=== PATIENT | male | born 1975 | race Caucasian/White ===

== ENCOUNTER 2016-08-29 09:40 | Emergency (ER) | payer MEDICARE, MEDICAID ==
--- NOTE | 2016-08-29 09:56 | EDM.PDOC ---
ED HPI Trauma - General Chief Complaint: Lower Extremity Injury/Pain Stated Complaint: dejan ptGriceldadoes not feel well. in by amb Time Seen by Provider: 08/29/16 09:45 Source: Reports: Patient History Limitations: Reports: No limitations - History of Present Illness INITIAL COMMENTS - FREE TEXT/NARRATIVE: This 41 yo male patient was brought to the ED by [facility] due left hip pain. The patient reports his pain has gotten worse over the weekend. The patient reports he has been seen in [place] for his hip pain. The patient states his hip is out of place, but no doctor will work on his hip because of an infection. The patient is a dialysis patient and scheduled for dialysis at 1130 today. The patient reports he is currently on Fentanyl and Oxycodone for his pain, but the medications are not helping. The patient reports he talked to a Demetra with infectious disease at [facility] in [place] and was told to come to our ED to possibly be transferred to [place]. The patient reports he has not take his medications in the past day or so due to immobility. Symptom Onset Date: 08/27/16 Occurred When: other Occurred Where: other Method of Injury: unknown Severity: severe Pain/Injury Location: Reports: lower extremity, left Consciousness: Reports: no loss of consciousness Associated Symptoms: Reports: no other symptoms Allergies/ADRs: Allergies cefazolin Allergy (Verified 08/29/16 09:51) Rash lisinopril Allergy (Verified 08/29/16 09:51) Cough metronidazole Allergy (Verified 08/29/16 09:51) Rash sevelamer carbonate [From Renvela] Allergy (Verified 08/29/16 09:51) Nausea Home Medications: Ambulatory Orders Albuterol [Ventolin HFA] 2 puff INH Q4H PRN 09/14/13 [Confirmed 08/29/16] Calcium Acetate [Phoslo] 3 cap PO TIDM 09/14/13 [Confirmed 08/29/16] Fluticasone Propionate [Flovent HFA 220 MCG] 2 puff INH BID 09/14/13 [Confirmed 08/29/16] Fluticasone/Salmeterol [Advair 250-50 Diskus] 2 puff INH BID PRN 09/14/13 [ Confirmed 08/29/16] Labetalol [Normodyne] 800 mg PO TID 09/14/13 [Confirmed 08/29/16] Loperamide [Imodium] 2 mg PO Q4H PRN 09/14/13 [Confirmed 08/29/16] Sodium Polystyrene Sulfonate 15 gm PO DAILY 09/14/13 [Confirmed 08/29/16] Warfarin Sodium [Jantoven] 5 mg PO ASDIRECTED 09/14/13 [Confirmed 08/29/16] Warfarin [Coumadin] 10 mg PO ASDIRECTED 09/14/13 [Confirmed 08/29/16] amLODIPine [Norvasc] 10 mg PO BEDTIME 09/14/13 [Confirmed 08/29/16] cloNIDine [Catapres] 0.3 mg PO TID 09/14/13 [Confirmed 08/29/16] oxyCODONE HCl/Acetaminophen [oxyCODONE-Acetaminophen 5-325] 1 tab PO TID PRN [Confirmed 08/29/16] Past Medical History HEENT History: Reports: Impaired vision Cardiovascular History: Reports: CAD, Heart murmur, Heart valve replacement, Hypertension, SOB on exertion Respiratory History: Reports: COPD Gastrointestinal History: Reports: Chronic diarrhea, GI bleed Genitourinary History: Reports: Chronic renal insuffiency, Dialysis, Renal disease Musculoskeletal History: Reports: Osteoarthritis Neurological History: Reports: Neuropathy, peripheral Psychiatric History: Reports: Aggressive/hostile behaviors, Antisocial behaviors , Anxiety, Emotional problems Endocrine/Metabolic History: Reports: Diabetes, type II Hematologic History: Reports: Anemia Immunologic History: Reports: None Oncologic (Cancer) History: Reports: None Dermatologic History: Reports: None - Infectious Disease History Infectious Disease History: Reports: None - Past Surgical History Head Surgeries/Procedures: Reports: None Cardiovascular Surgical History: Reports: Valve replacement, Other (see below) Other Cardiovascular Surgeries/Procedures: aortic valve replacement X2 GI Surgical History: Reports: None Social & Family History - Family History Family Medical History: Noncontributory - Tobacco Use Smoking Status *Q: Current Every Day Smoker Years of Tobacco use: 24 Packs/Tins Daily: 1 Used Tobacco, but Quit: Yes Month Tobacco Last Used: June Second Hand Smoke Exposure: No - Caffeine Use Caffeine Use: Reports: Soda - Alcohol Use Days Per Week of Alcohol Use: 0 - Recreational Drug Use Recreational Drug Use: No Drug Use in Last 12 Months: Yes Recreational Drug Type: Reports: Marijuana/Hashish Recreational Drug Use Frequency: Binges - Living Situation & Occupation Living situation: Reports: with family Occupation: disabled Review of Systems - Review of Systems Review Of Systems: ROS reveals no pertinent complaints other than HPI. Trauma Exam - Physical Exam Exam: See Below Exam Limited By: No limitations General Appearance: Reports: alert, WD/WN, moderate distress Head: Reports: atraumatic, normocephalic Eyes: bilateral eye: EOMI, normal inspection Ears: Reports: normal external exam, normal canal, hearing grossly normal, normal TMs Nose: Reports: normal inspection, normal mucousa, no blood Throat/Mouth: Reports: Normal inspection, Normal lips, Normal teeth, Normal gums , Normal oropharynx, Normal voice, No airway compromise Neck: Reports: non-tender, full range of motion, normal alignment, normal inspection Respiratory Exam: Reports: no respiratory distress, lungs clear, normal breath sounds Cardiovascular: Reports: normal peripheral pulses, regular rate, rhythm, no edema, no gallop, no JVD, no murmur, no rub GI/Abdominal: Reports: normal bowel sounds, soft, non tender, no organomegaly, no distention, no abnormal bruit, no mass (Male) Exam: Deferred Rectal (Males) Exam: Deferred Back: Reports: full range of motion, normal inspection, non-tender Extremities: Reports: pain with movement (left hip), tenderness (left hip) Neurologic: Reports: supervisor dehydrogenation II-XII nml as tested, alert, normal mood/affect, oriented x 3 Skin: Reports: Other (The patient has numerous excoriations on his face and upper estremities. ) Course - Vital Signs Last Recorded V/S: Last Vital Signs Temp 36.9 C 08/29/16 09:42 Pulse 79 08/29/16 09:54 Resp 16 08/29/16 09:54 BP 174/103 H 08/29/16 09:54 Pulse Ox 98 08/29/16 09:54 - Orders/Labs/Meds Labs: Laboratory Tests 08/29/16 08/29/16 08/29/16 Range/Units 10:05 10:05 10:05 WBC 7.5 (5.0-10.0) 10^3/uL RBC 3.12 L (4.6-6.2) 10^6/uL Hgb 9.8 L (14.0-18.0) g/dL Hct 30.1 L (40.0-54.0) % MCV 96.5 (80-100) fL MCH 31.4 (27.0-34.0) pg MCHC 32.6 L (33.0-35.0) g/dL Plt Count 272 (150-450) 10^3/uL Neut % (Auto) 80.7 H (42.2-75.2) % Lymph % (Auto) 6.9 L (20.5-50.1) % Hemphill % (Auto) 6.8 (2-8) % Eos % (Auto) 4.5 H (1.0-3.0) % Baso % (Auto) 1.1 H (0.0-1.0) % PT 12.5 H (9.0-12.0) SEC INR 1.2 (0.9-1.2) Sodium 133 L (135-145) mmol/L Potassium 4.0 (3.6-5.0) mmol/L Chloride 100 L (101-111) mmol/L Carbon Dioxide 20.0 L (21.0-31.0) mmol/L Anion Gap 17.0 BUN 56 H (7-18) mg/dL Creatinine 7.0 H (0.6-1.3) mg/dL Est Cr Clr Drug Dosing 14.49 mL/min Estimated GFR (MDRD) 9 BUN/Creatinine Ratio 8.00 Glucose 99 (74-105) mg/dL Calcium 7.7 L (8.4-10.2) mg/dl Magnesium 1.6 L (1.8-2.5) mg/dL Total Bilirubin 2.6 H (0.2-1.0) mg/dL AST 12 (10-42) IU/L ALT 10 (10-60) IU/L Alkaline Phosphatase 69 (42-121) IU/L Total Protein 7.3 (6.7-8.2) g/dl Albumin 2.1 L (3.2-5.5) g/dl Globulin 5.2 Albumin/Globulin Ratio 0.40 Ethyl Alcohol 5 mg/dL Departure - Departure Time of Disposition: 11:07 Disposition: DC/Tfer to [facility] 02 Condition: fair Clinical Impression: Left hip pain, End stage renal failure on dialysis Forms: Interfacility Transfer EMTALA Care Plan Goals: Discussed the examination, lab and CT results with Dr. Ludwig ([facility]) . Dr. uLdwig accepted the patient for continued evaluation and management. The patient will be transported by [facility].
[2016-08-29] MEDS ORDERED: Morphine 2 MG/ML Syringe IVPUSH ONE (11:40)
[2016-08-29 12:03] VITALS: BP 180/99
== END 2016-08-29 11:58 ==
LOC: DL.ED 09:40
DX: M25.552 Pain in left hip (principal); I12.0 Hypertensive chronic kidney disease with stage 5 chronic kidney disease or end stage renal disease; E11.22 Type 2 diabetes mellitus with diabetic chronic kidney disease; N18.6 End stage renal disease; Z99.2 Dependence on renal dialysis; K80.20 Calculus of gallbladder without cholecystitis without obstruction; I25.10 Atherosclerotic heart disease of native coronary artery without angina pectoris; J44.9 Chronic obstructive pulmonary disease, unspecified; Z95.2 Presence of prosthetic heart valve; Z79.01 Long term (current) use of anticoagulants; M19.90 Unspecified osteoarthritis, unspecified site; D64.9 Anemia, unspecified; Z79.899 Other long term (current) drug therapy; F17.210 Nicotine dependence, cigarettes, uncomplicated; F12.980 Cannabis use, unspecified with anxiety disorder; Z96.643 Presence of artificial hip joint, bilateral
CPT/HCPCS: 36415; 72192; 80053; 83735; 85025; 85610; 96374; 99285; G0480; J2270; 99284

== ENCOUNTER 2016-09-22 14:55 | Emergency (ER) | payer MEDICARE, MEDICAID ==
--- NOTE | 2016-09-22 15:34 | EDM.PDOC ---
ED HPI GENERAL MEDICAL PROBLEM - General Chief Complaint: General Stated Complaint: Medical screening Time Seen by Provider: 09/22/16 15:15 Source of Information: Reports: Patient, Old records, RN, RN notes reviewed History Limitations: Reports: No limitations - History of Present Illness INITIAL COMMENTS - FREE TEXT/NARRATIVE: Arrivesfrom home by POV stating "some chick from [facility] called and told him to go the ER for a blood draw". Patient states he was not to go to [facility] for the lab draw because "they" told him the clinic was not qualified. Patient had no lab order (s) and he didn't know what labs he needed. The home health nurse was contacted and she states she wanted the patient to have a "general evaluation" because he missed dialysis twice and she thought he had slurred speech. Patient denies slurred speech, headache, visual or any neuro symptoms, chest pain, SOB or ay other acute complaints. Duration: Chronic Left Leg Pain Score (Numeric/FACES): 10 - Related Data Allergies Allergy/AdvReac Type Severity Reaction Status Date / Time cefazolin Allergy Rash Verified 09/22/16 15:41 lisinopril Allergy Cough Verified 09/22/16 15:41 metronidazole Allergy Rash Verified 09/22/16 15:41 sevelamer carbonate Allergy Nausea Verified 09/22/16 15:41 [From [facility] [place]] Home Meds: Home Meds Albuterol [Ventolin HFA] 2 puff INH Q4H PRN 09/14/13 [History] Calcium Acetate [Phoslo] 3 cap PO TIDM 09/14/13 [History] Fluticasone Propionate [Flovent HFA 220 MCG] 2 puff INH BID 09/14/13 [History] Fluticasone/Salmeterol [Advair 250-50 Diskus] 2 puff INH BID PRN 09/14/13 [ History] Labetalol [Normodyne] 800 mg PO TID 09/14/13 [History] Loperamide [Imodium] 2 mg PO Q4H PRN 09/14/13 [History] Sodium Polystyrene Sulfonate 15 gm PO DAILY 09/14/13 [History] Warfarin Sodium [Jantoven] 5 mg PO ASDIRECTED 09/14/13 [History] Warfarin [Coumadin] 10 mg PO ASDIRECTED 09/14/13 [History] amLODIPine [Norvasc] 10 mg PO BEDTIME 09/14/13 [History] cloNIDine [Catapres] 0.3 mg PO TID 09/14/13 [History] oxyCODONE HCl/Acetaminophen [oxyCODONE-Acetaminophen 5-325] 1 tab PO TID PRN [History] Past Medical History HEENT History: Reports: Impaired vision Cardiovascular History: Reports: CAD, Heart murmur, Heart valve replacement, Hypertension, SOB on exertion Respiratory History: Reports: COPD Gastrointestinal History: Reports: Chronic diarrhea, GI bleed Genitourinary History: Reports: Chronic renal insuffiency, Dialysis, Renal disease Musculoskeletal History: Reports: Osteoarthritis Neurological History: Reports: Neuropathy, peripheral Psychiatric History: Reports: Aggressive/hostile behaviors, Antisocial behaviors , Anxiety, Emotional problems Endocrine/Metabolic History: Reports: Diabetes, type II Hematologic History: Reports: Anemia Immunologic History: Reports: None Oncologic (Cancer) History: Reports: None Dermatologic History: Reports: None - Infectious Disease History Infectious Disease History: Reports: None - Past Surgical History Head Surgeries/Procedures: Reports: None Cardiovascular Surgical History: Reports: Valve replacement, Other (see below) Other Cardiovascular Surgeries/Procedures: aortic valve replacement X2 GI Surgical History: Reports: None Social & Family History - Family History Family Medical History: Noncontributory - Tobacco Use Smoking Status *Q: Current Every Day Smoker Years of Tobacco use: 24 Packs/Tins Daily: 1 Used Tobacco, but Quit: Yes Month Tobacco Last Used: June Second Hand Smoke Exposure: No - Caffeine Use Caffeine Use: Reports: Soda - Alcohol Use Days Per Week of Alcohol Use: 0 - Recreational Drug Use Recreational Drug Use: No Drug Use in Last 12 Months: Yes Recreational Drug Type: Reports: Marijuana/Hashish Recreational Drug Use Frequency: Binges - Living Situation & Occupation Living situation: Reports: with family Occupation: disabled ED ROS GENERAL - Review of Systems Review Of Systems: ROS reveals no pertinent complaints other than HPI. ED EXAM, GENERAL - Physical Exam Exam: See Below Exam Limited By: No limitations General Appearance: other (chronically ill appearing. ) Eye Exam: bilateral eye: normal inspection Ears: normal external exam, normal canal, hearing grossly normal, normal TMs Nose: normal inspection, normal mucosa, no blood Throat/Mouth: Other (No teeth.) Neck: normal inspection, supple, non-tender, full range of motion Respiratory/Chest: other (Decreased sounds in bilateral bases, mild scattered wheezes throughout bilateral lung huizar. ) Cardiovascular: regular rate, rhythm, systolic murmur (2/6 ) GI/Abdominal: normal bowel sounds, soft, non tender, no organomegaly, no distention, no abnormal bruit, no mass Back Exam: normal inspection, full range of motion, NT Extremities: other (stable chronic hip pain left greater than right. 2+ pitting edema to knees bilateral, stable and chronic per patient.) Neurological: alert, oriented, CN II-XII intact, normal cognition, normal gait, normal reflexes, no motor/sensory deficits Psychiatric: normal affect, normal mood Skin Exam: Warm, Dry, Intact, Normal color, No rash Course - Vital Signs Last Recorded V/S: Last Vital Signs Temp 36.2 C 09/22/16 15:31 Pulse 82 09/22/16 15:31 Resp 18 09/22/16 15:31 BP 114/69 09/22/16 15:31 Pulse Ox 95 09/22/16 15:31 - Orders/Labs/Meds Orders: Active Orders 24 hr Category Date Time Status Peripheral IV Care [RC] . DIRECTED Care 09/22/16 16:47 Active RT Aerosol Therapy [RC] ASDIRECTED Care 09/22/16 16:38 Inactive Sodium Chloride 0.9% [Saline Flush] Med 09/22/16 16:47 Active 10 ml FLUSH ASDIRECTED PRN Peripheral IV Insertion Adult [OM.PC] Stat Oth 09/22/16 16:47 Ordered Medication Orders Sodium Chloride (Saline Flush) 10 ml FLUSH ASDIRECTED PRN PRN Reason: Keep Vein Open Last Admin: 09/22/16 17:07 Dose: 10 ml Labs: Laboratory Tests 09/22/16 09/22/16 09/22/16 Range/Units 15:50 15:50 15:50 WBC 10.3 H (5.0-10.0) 10^3/uL RBC 3.01 L (4.6-6.2) 10^6/uL Hgb 9.4 L (14.0-18.0) g/dL Hct 29.0 L (40.0-54.0) % MCV 96.3 (80-100) fL MCH 31.2 (27.0-34.0) pg MCHC 32.4 L (33.0-35.0) g/dL Plt Count 415 (150-450) 10^3/uL Neut % (Auto) 86.2 H (42.2-75.2) % Lymph % (Auto) 5.3 L (20.5-50.1) % Ramsey % (Auto) 6.6 (2-8) % Eos % (Auto) 1.5 (1.0-3.0) % Baso % (Auto) 0.4 (0.0-1.0) % PT > 120.0 H (9.0-12.0) SEC INR > 5.0 H (0.9-1.2) Sodium 133 L (135-145) mmol/L Potassium 6.2 H (3.6-5.0) mmol/L Chloride 96 L (101-111) mmol/L Carbon Dioxide 18.0 L (21.0-31.0) mmol/L Anion Gap 25.2 BUN 111 H (7-18) mg/dL Creatinine 11.3 H (0.6-1.3) mg/dL Est Cr Clr Drug Dosing TNP Estimated GFR (MDRD) 5 BUN/Creatinine Ratio 9.82 Glucose 74 (74-105) mg/dL Calcium 7.8 L (8.4-10.2) mg/dl Phosphorus 7.4 H (2.5-4.6) mg/dL Magnesium 1.8 (1.8-2.5) mg/dL Total Bilirubin 1.9 H (0.2-1.0) mg/dL AST 33 (10-42) IU/L ALT 30 (10-60) IU/L Alkaline Phosphatase 163 H (42-121) IU/L Total Protein 7.8 (6.7-8.2) g/dl Albumin 2.3 L (3.2-5.5) g/dl Globulin 5.5 Albumin/Globulin Ratio 0.42 /12/03 Range/Units 18:20 WBC (5.0-10.0) 10^3/uL RBC (4.6-6.2) 10^6/uL Hgb (14.0-18.0) g/dL Hct (40.0-54.0) % MCV (80-100) fL MCH (27.0-34.0) pg MCHC (33.0-35.0) g/dL Plt Count (150-450) 10^3/uL Neut % (Auto) (42.2-75.2) % Lymph % (Auto) (20.5-50.1) % Ramsey % (Auto) (2-8) % Eos % (Auto) (1.0-3.0) % Baso % (Auto) (0.0-1.0) % PT (9.0-12.0) SEC INR (0.9-1.2) Sodium 134 L (135-145) mmol/L Potassium 5.6 H (3.6-5.0) mmol/L Chloride 97 L (101-111) mmol/L Carbon Dioxide 17.0 L (21.0-31.0) mmol/L Anion Gap 25.6 BUN 116 H (7-18) mg/dL Creatinine 11.9 H (0.6-1.3) mg/dL Est Cr Clr Drug Dosing TNP Estimated GFR (MDRD) 5 BUN/Creatinine Ratio Glucose 36 L* (74-105) mg/dL Calcium 8.0 L (8.4-10.2) mg/dl Phosphorus (2.5-4.6) mg/dL Magnesium (1.8-2.5) mg/dL Total Bilirubin (0.2-1.0) mg/dL AST (10-42) IU/L ALT (10-60) IU/L Alkaline Phosphatase (42-121) IU/L Total Protein (6.7-8.2) g/dl Albumin (3.2-5.5) g/dl Globulin Albumin/Globulin Ratio Meds: Medications Generic Name Dose Route Start Last Admin Trade Name Freq PRN Reason Stop Dose Admin Sodium Chloride 10 ml 09/22/16 16:47 09/22/16 17:07 Saline Flush FLUSH 10 ml ASDIRECTED PRN Administration Keep Vein Open Discontinued Medications Generic Name Dose Route Start Last Admin Trade Name Freq PRN Reason Stop Dose Admin Albuterol 10 mg 09/22/16 16:37 09/22/16 17:04 Provenkodak Neb Jocelyn NEB 09/22/16 16:38 Not Given ONETIME ONE Albuterol 10 mg 09/22/16 16:55 09/22/16 17:03 Proventil Neb Soln NEB 09/22/16 16:56 10 mg ONETIME ONE Administration Dextrose/Water 50 ml 09/22/16 16:38 09/22/16 17:07 Dextrose 50% In Water IVPUSH 09/22/16 16:39 50 ml ONETIME ONE Administration Dextrose/Water 50 ml 09/22/16 18:50 Dextrose 50% In Water IVPUSH 09/22/16 18:51 ONETIME ONE Insulin Human Regular 10 unit 09/22/16 16:39 09/22/16 17:08 Novolin R IVPUSH 09/22/16 16:40 10 units ONETIME ONE Administration Protocol Phytonadione 5 mg 09/22/16 16:39 09/22/16 17:18 Aquamephyton PO 09/22/16 16:40 5 mg ONETIME ONE Administration Sodium Polystyrene Sulfonate 30 gm 09/22/16 16:36 09/22/16 17:19 Kayexalate PO 09/22/16 16:37 30 gm ONETIME ONE Administration Departure - Departure Time of Disposition: 19:00 Disposition: Home, Self-Care 01 Condition: fair Clinical Impression: Encounter for medical screening examination, End stage renal disease on dialysis, Dialysis patient, noncompliant, Hyperkalemia, At risk for bleeding associated with anticoagulants Instructions: Hyperkalemia, [id number] Forms: ED Department Discharge Additional Instructions: Discharge to home. Follow up for dialysis tomorrow. Go to pharmacy and refill your inhalers and use them as prescribed. - My Orders Last 24 Hours: My Active Orders 09/22/16 16:38 RT Aerosol Therapy [RC] ASDIRECTED 09/22/16 16:47 Peripheral IV Care [RC] . DIRECTED Sodium Chloride 0.9% [Saline Flush] 10 ml FLUSH ASDIRECTED PRN Peripheral IV Insertion Adult [OM.PC] Stat - Assessment/Plan Last 24 Hours: My Active Orders 09/22/16 16:38 RT Aerosol Therapy [RC] ASDIRECTED 09/22/16 16:47 Peripheral IV Care [RC] . DIRECTED Sodium Chloride 0.9% [Saline Flush] 10 ml FLUSH ASDIRECTED PRN Peripheral IV Insertion Adult [OM.PC] Stat
[2016-09-22 16:17] LABS: CHLORIDE,CL 96 mmol/L (101-111); SODIUM,NA 133 mmol/L (135-145)
[2016-09-22] MEDS ORDERED: Sodium Polystyrene Sulfonate 15 GM/60 ML Susp 60 ML Bot PO ONE (16:36)
[2016-09-22] MEDS ORDERED: Albuterol 0.5% 5 MG/ML Neb Soln 20 ML Bottle NEB ONE (16:37)
[2016-09-22] MEDS ORDERED: 50% Dextrose in Water 50 ML Syringe IVPUSH ONE ×2 (16:38→18:50)
[2016-09-22] MEDS ORDERED: Insulin Regular, Human 100 Units/ML 10 ML Vial IVPUSH ONE (16:39)
[2016-09-22] MEDS ORDERED: Phytonadione ORAL 2.5mg/2.5ml Soln Simple Syrup U/D PO ONE (16:39)
[2016-09-22] MEDS ORDERED: Sodium Chloride 0.9% 10 ML Syringe FLUSH PRN (16:47)
[2016-09-22] MEDS ORDERED: Albuterol 0.083% 2.5 MG/3 ML Neb Soln NEB ONE (16:55)
[2016-09-22 18:55] LABS: CHLORIDE,CL 97 mmol/L (101-111); SODIUM,NA 134 mmol/L (135-145)
[2016-09-22 19:56] VITALS: BP 123/87
== END 2016-09-22 19:53 | disposition home or self-care (01) ==
LOC: DL.ED 14:55
DX: Z13.9 Encounter for screening, unspecified (principal); E87.5 Hyperkalemia; M79.605 Pain in left leg; I25.10 Atherosclerotic heart disease of native coronary artery without angina pectoris; I10 Essential (primary) hypertension; J44.9 Chronic obstructive pulmonary disease, unspecified; Z95.2 Presence of prosthetic heart valve; Z79.01 Long term (current) use of anticoagulants; Z79.899 Other long term (current) drug therapy; Z88.8 Allergy status to other drugs, medicaments and biological substances
CPT/HCPCS: 36415; 80048; 80053; 82962; 83735; 84100; 85025; 85610; 96374; 96375; 96376; 99283; A9270; J1815; J7050; J7620; 99284; J7060

== ENCOUNTER 2016-10-11 15:48 | Emergency (ER) | payer MEDICARE, MEDICAID ==
--- NOTE | 2016-10-11 18:08 | EDM.PDOC ---
ED HPI Skin/Rash - General Chief Complaint: Skin Complaint Stated Complaint: rash [phone] CELL Time Seen by Provider: 10/11/16 16:30 Source: Reports: Patient History Limitations: Reports: No limitations - History of Present Illness INITIAL COMMENTS - FREE TEXT/NARRATIVE: This 41 yo male dialysis patient reports to the ED due to swelling and a rash in his hands and feet. The patient reports he was on his way to [facility] to get a hip aspiration, but stopped in the ED prior to driving to [facility] to get his extremities checked out. Timing: Reports: still present Location, Skin: Reports: upper extremity, right, upper extremity, left, lower extremity, right, lower extremity, left Quality: Reports: Dull, Itching Severity: moderate Known Identified Source: no Place of Occurrence: home Sick Contact: no Associated Symptoms: Reports: no other symptoms Similar Symptoms Previously: no Recent Medical Care: no - Related Data Allergies Allergy/AdvReac Type Severity Reaction Status Date / Time cefazolin Allergy Rash Verified 10/11/16 16:04 lisinopril Allergy Cough Verified 10/11/16 16:04 metronidazole Allergy Rash Verified 10/11/16 16:04 sevelamer carbonate Allergy Nausea Verified 10/11/16 16:04 [From [facility]] Home Meds: Ambulatory Orders Medication Instructions Recorded Confirmed Albuterol [Ventolin HFA] 2 puff INH Q4H PRN 09/14/13 10/11/16 Calcium Acetate [Phoslo] 3 cap PO TIDM 09/14/13 10/11/16 Fluticasone Propionate [Flovent 2 puff INH BID 09/14/13 10/11/16 HFA 220 MCG] Fluticasone/Salmeterol [Advair 2 puff INH BID PRN 09/14/13 10/11/16 250-50 Diskus] Labetalol [Normodyne] 800 mg PO TID 09/14/13 10/11/16 Loperamide [Imodium] 2 mg PO Q4H PRN 09/14/13 10/11/16 Sodium Polystyrene Sulfonate 15 gm PO DAILY 09/14/13 10/11/16 Warfarin Sodium [Jantoven] 5 mg PO ASDIRECTED 09/14/13 10/11/16 Warfarin [Coumadin] 10 mg PO ASDIRECTED 09/14/13 10/11/16 amLODIPine [Norvasc] 10 mg PO BEDTIME 09/14/13 10/11/16 cloNIDine [Catapres] 0.3 mg PO TID 09/14/13 10/11/16 fentaNYL [Duragesic] 1 patch TOP Q72H 10/11/16 10/11/16 oxyCODONE HCl/Acetaminophen 2 tab PO Q6H 10/11/16 10/11/16 [oxyCODONE-Acetaminophen 5-325] Past Medical History HEENT History: Reports: Impaired vision Cardiovascular History: Reports: CAD, Heart murmur, Heart valve replacement, Hypertension, SOB on exertion Respiratory History: Reports: COPD Gastrointestinal History: Reports: Chronic diarrhea, GI bleed Genitourinary History: Reports: Chronic renal insuffiency, Dialysis, Renal disease Musculoskeletal History: Reports: Osteoarthritis Neurological History: Reports: Neuropathy, peripheral Psychiatric History: Reports: Aggressive/hostile behaviors, Antisocial behaviors , Anxiety, Emotional problems Endocrine/Metabolic History: Reports: Diabetes, type II Hematologic History: Reports: Anemia Immunologic History: Reports: None Oncologic (Cancer) History: Reports: None Dermatologic History: Reports: None - Infectious Disease History Infectious Disease History: Reports: None, Pertussis (whooping cough) - Past Surgical History Head Surgeries/Procedures: Reports: None Cardiovascular Surgical History: Reports: Valve replacement, Other (see below) Other Cardiovascular Surgeries/Procedures: aortic valve replacement X2 GI Surgical History: Reports: None Musculoskeletal Surgical History: Reports: Hip replacement Social & Family History - Family History Family Medical History: Noncontributory - Tobacco Use Smoking Status *Q: Current Every Day Smoker Years of Tobacco use: 26 Packs/Tins Daily: 1 Used Tobacco, but Quit: Yes Month Tobacco Last Used: June Second Hand Smoke Exposure: No - Caffeine Use Caffeine Use: Reports: None - Alcohol Use Days Per Week of Alcohol Use: 0 - Recreational Drug Use Recreational Drug Use: Yes Drug Use in Last 12 Months: Yes Recreational Drug Type: Reports: Marijuana/Hashish Recreational Drug Use Frequency: Binges - Living Situation & Occupation Living situation: Reports: with family Occupation: disabled ED ROS GENERAL - Review of Systems Review Of Systems: ROS reveals no pertinent complaints other than HPI. ED EXAM, SKIN/RASH Exam: See Below Exam Limited By: No limitations General Appearance: alert, WD/WN, moderate distress, thin Eye Exam: bilateral eye: EOMI, normal inspection, PERRL Ears: normal external exam, normal canal, hearing grossly normal, normal TMs Nose: normal inspection, normal mucosa, no blood Throat/Mouth: Normal inspection, Normal lips, Normal teeth, Normal gums, Normal oropharynx, Normal voice, No airway compromise Head: atraumatic, normocephalic Neck: normal inspection, supple, non-tender, full range of motion Respiratory/Chest: no respiratory distress, lungs clear, normal breath sounds, no accessory muscle use, chest non-tender Cardiovascular: normal peripheral pulses, regular rate, rhythm, no edema, no gallop, no JVD, no murmur, no rub GI/Abdominal: normal bowel sounds, soft, non tender, no organomegaly, no distention, no abnormal bruit, no mass (Male) Exam: Deferred Rectal (Males) Exam: Deferred Back Exam: normal inspection, full range of motion, NT Extremities: redness Neurological: alert, oriented, CN II-XII intact, normal cognition, normal gait, normal reflexes, no motor/sensory deficits Psychiatric: normal affect, normal mood Skin: Erythema, Excoriations, Rash Location, Skin: head, face, upper extremity, right, upper extremity, left, lower extremity, right, lower extremity, left Associated features: warmth, tenderness, swelling, inflammation Lymphatic: no adenopathy Course - Vital Signs Last Recorded V/S: Last Vital Signs Temp 36.8 C 10/11/16 16:24 Pulse 67 10/11/16 16:24 Resp 20 10/11/16 16:24 BP 118/77 10/11/16 16:24 Pulse Ox 100 10/11/16 16:24 - Orders/Labs/Meds Orders: Active Orders 24 hr Category Date Time Status CULTURE BLOOD [BC] Stat Lab 10/11/16 16:48 Received CULTURE BLOOD [BC] Stat Lab 10/11/16 16:55 Received Blood Culture x2 Reflex Set [OM.PC] Stat Oth 10/11/16 16:29 Ordered Labs: Laboratory Tests 10/11/16 10/11/16 10/11/16 Range/Units 16:48 16:48 16:48 WBC 10.6 H (5.0-10.0) 10^3/uL RBC 3.53 L (4.6-6.2) 10^6/uL Hgb 10.1 L (14.0-18.0) g/dL Hct 32.9 L (40.0-54.0) % MCV 93.2 (80-100) fL MCH 28.6 (27.0-34.0) pg MCHC 30.7 L (33.0-35.0) g/dL Plt Count 670 H (150-450) 10^3/uL Neut % (Auto) 90.2 H (42.2-75.2) % Lymph % (Auto) 4.7 L (20.5-50.1) % [place] % (Auto) 4.3 (2-8) % Eos % (Auto) 0.4 L (1.0-3.0) % Baso % (Auto) 0.4 (0.0-1.0) % Sodium 130 L (135-145) mmol/L Potassium 4.9 (3.6-5.0) mmol/L Chloride 88 L (101-111) mmol/L Carbon Dioxide 26.0 (21.0-31.0) mmol/L Anion Gap 20.9 BUN 56 H (7-18) mg/dL Creatinine 5.3 H (0.6-1.3) mg/dL Est Cr Clr Drug Dosing 17.79 mL/min Estimated GFR (MDRD) 12 BUN/Creatinine Ratio 10.56 Glucose 120 H (74-105) mg/dL Lactic Acid 2.7 H (0.5-2.2) mmol/L Calcium 9.0 (8.4-10.2) mg/dl Magnesium 1.5 L (1.8-2.5) mg/dL Total Bilirubin 1.4 H (0.2-1.0) mg/dL AST 33 (10-42) IU/L ALT 28 (10-60) IU/L Alkaline Phosphatase 1035 H (42-121) IU/L Total Protein 8.5 H (6.7-8.2) g/dl Albumin 2.6 L (3.2-5.5) g/dl Globulin 5.9 Albumin/Globulin Ratio 0.44 Departure - Departure Time of Disposition: 18:00 Disposition: DC/Tfer to Acute Hospital 02 Condition: poor Clinical Impression: Renal dialysis Cellulitis Qualifiers: Site of cellulitis: other site Qualified Code(s): L03.818 - Cellulitis of other sites Forms: ED Department Discharge Care Plan Goals: Discussed the examination, history and lab results with Dr. Demarco. Dr. Demarco accepted the patient for continued evaluation and treatment as an inpatient at [facility]. - My Orders Last 24 Hours: My Active Orders 10/11/16 16:29 Blood Culture x2 Reflex Set [OM.PC] Stat 10/11/16 16:48 CULTURE BLOOD [BC] Stat 10/11/16 16:55 CULTURE BLOOD [BC] Stat - Assessment/Plan Last 24 Hours: My Active Orders 10/11/16 16:29 Blood Culture x2 Reflex Set [OM.PC] Stat 10/11/16 16:48 CULTURE BLOOD [BC] Stat 10/11/16 16:55 CULTURE BLOOD [BC] Stat
[2016-10-11 20:03] VITALS: BP 138/86
== END 2016-10-11 20:00 ==
LOC: DL.ED 15:48
DX: L03.818 Cellulitis of other sites (principal); I25.10 Atherosclerotic heart disease of native coronary artery without angina pectoris; I10 Essential (primary) hypertension; J44.9 Chronic obstructive pulmonary disease, unspecified; E11.9 Type 2 diabetes mellitus without complications; D64.9 Anemia, unspecified; F17.210 Nicotine dependence, cigarettes, uncomplicated; Z88.8 Allergy status to other drugs, medicaments and biological substances; Z79.899 Other long term (current) drug therapy; Z79.01 Long term (current) use of anticoagulants; Z95.2 Presence of prosthetic heart valve; Z99.2 Dependence on renal dialysis
CPT/HCPCS: 36415; 80053; 83605; 83735; 85025; 87040; 87077; 87186; 99284

== ENCOUNTER 2016-11-04 04:57 | Emergency (ER) | payer MEDICARE, MEDICAID ==
[2016-11-04] MEDS ORDERED: methylPREDNISolone Sodium Succinate 125 MG/2 ML SDV IVPUSH ONE (05:10)
[2016-11-04] MEDS ORDERED: Furosemide 20 MG/2 ML VIAL IVPUSH ONE (05:10)
--- NOTE | 2016-11-04 05:10 | EDM.PDOC ---
ED HPI GENERAL MEDICAL PROBLEM - General Chief Complaint: Respiratory Problem Stated Complaint: AMBULANCE Time Seen by Provider: 11/04/16 05:06 Source of Information: Reports: EMS History Limitations: Reports: Respiratory Distress - History of Present Illness INITIAL COMMENTS - FREE TEXT/NARRATIVE: EMS responded to Pt with SOB who missed his dialysis monday, still smokes. phx COPD end stage dialysis with poor compliance. Pt unsure when his breathing got bad. states takes coumadin for heart valve replacement. states "freaking out can't breath". arrived with CPAP & had 1x duoneb en route. - Related Data Allergies Allergy/AdvReac Type Severity Reaction Status Date / Time cefazolin Allergy Rash Verified 10/11/16 16:04 lisinopril Allergy Cough Verified 10/11/16 16:04 metronidazole Allergy Rash Verified 10/11/16 16:04 sevelamer carbonate Allergy Nausea Verified 10/11/16 16:04 [facility] Home Meds: Home Meds Albuterol [Ventolin HFA] 2 puff INH Q4H PRN 09/14/13 [History] Calcium Acetate [Phoslo] 3 cap PO TIDM 09/14/13 [History] Fluticasone Propionate [Flovent HFA 220 MCG] 2 puff INH BID 09/14/13 [History] Fluticasone/Salmeterol [Advair 250-50 Diskus] 2 puff INH BID PRN 09/14/13 [ History] Labetalol [Normodyne] 800 mg PO TID 09/14/13 [History] Loperamide [Imodium] 2 mg PO Q4H PRN 09/14/13 [History] Sodium Polystyrene Sulfonate 15 gm PO DAILY 09/14/13 [History] Warfarin Sodium [Jantoven] 5 mg PO ASDIRECTED 09/14/13 [History] Warfarin [Coumadin] 10 mg PO ASDIRECTED 09/14/13 [History] amLODIPine [Norvasc] 10 mg PO BEDTIME 09/14/13 [History] cloNIDine [Catapres] 0.3 mg PO TID 09/14/13 [History] fentaNYL [Duragesic] 1 patch TOP Q72H 10/11/16 [History] oxyCODONE HCl/Acetaminophen [oxyCODONE-Acetaminophen 5-325] 2 tab PO Q6H [History] Past Medical History HEENT History: Reports: Impaired Vision Cardiovascular History: Reports: CAD, Heart Murmur, Heart Valve Replacement, Hypertension, SOB on Exertion Respiratory History: Reports: COPD Gastrointestinal History: Reports: Chronic Diarrhea, GI Bleed Genitourinary History: Reports: Chronic Renal Insuffiency, Dialysis, Renal Disease Musculoskeletal History: Reports: Osteoarthritis Neurological History: Reports: Neuropathy, Peripheral Psychiatric History: Reports: Aggressive/Hostile Behaviors, Antisocial Behaviors , Anxiety, Emotional Problems Endocrine/Metabolic History: Reports: Diabetes, Type II Hematologic History: Reports: Anemia Immunologic History: Reports: None Oncologic (Cancer) History: Reports: None Dermatologic History: Reports: None - Infectious Disease History Infectious Disease History: Reports: None, Pertussis (Whooping Cough) - Past Surgical History Cardiovascular Surgical History: Reports: Valve Replacement, Other (See Below) Musculoskeletal Surgical History: Reports: Hip Replacement Social & Family History - Family History Family Medical History: Noncontributory - Tobacco Use Smoking Status *Q: Current Every Day Smoker Years of Tobacco use: 26 Packs/Tins Daily: 1 Used Tobacco, but Quit: Yes Month Tobacco Last Used: June Second Hand Smoke Exposure: No - Caffeine Use Caffeine Use: Reports: None - Alcohol Use Days Per Week of Alcohol Use: 0 - Recreational Drug Use Recreational Drug Use: Yes Drug Use in Last 12 Months: Yes Recreational Drug Type: Reports: Marijuana/Hashish Recreational Drug Use Frequency: Binges - Living Situation & Occupation Living situation: Reports: with Family Occupation: Disabled ED ROS GENERAL - Review of Systems Review Of Systems: ROS reveals no pertinent complaints other than HPI. ED EXAM, GENERAL - Physical Exam Exam: See Below Exam Limited By: No Limitations General Appearance: Alert, WD/WN, Moderate Distress, Other (on CPAP, short sentences) Ears: Hearing Grossly Normal Throat/Mouth: Normal Voice, No Airway Compromise Head: Atraumatic Neck: Non-Tender, Full Range of Motion Respiratory/Chest: Decreased Breath Sounds, Crackles, Rales, Rhonchi, Accessory Muscle Use, Retractions, Other (mild subcostal retraction) Cardiovascular: Regular Rate, Rhythm GI/Abdominal: Soft, Non-Tender Extremities: Pedal Edema, Other (3+ bilateral) Neurological: Alert, Normal Cognition Psychiatric: Flat Affect Skin Exam: Diaphoretic Lymphatic: No Adenopathy Course - Vital Signs Last Recorded V/S: Last Vital Signs Temp 35.9 C 05/19/17 04:54 Pulse 90 11/04/16 04:54 Resp 24 H 11/04/16 04:54 BP 143/91 H 11/04/16 04:54 Pulse Ox 100 11/04/16 05:11 - Orders/Labs/Meds Orders: Active Orders 24 hr Category Date Time Status EKG 12 Lead [EKG Documentation Completion] [RC] STAT Care 11/04/16 05:01 Active Chest 1V Frontal [CR] Urgent Exams 11/04/16 05:04 Taken Chest 1V Frontal [CR] Urgent Exams 11/04/16 05:48 Taken ABG [BLOOD GAS ARTERIAL] [BG] Stat Lab 11/04/16 05:50 Received B-TYPE NATRIURETIC PEPTIDE,BNP [CHEM] Stat Lab 11/04/16 05:15 Received CBC WITH AUTO DIFF [HEME] Stat Lab 11/04/16 05:15 Results COMPREHENSIVE METABOLIC PN,CMP [CHEM] Stat Lab 11/04/16 05:15 Received CULTURE BLOOD [BC] Stat Lab 11/04/16 05:10 Received CULTURE BLOOD [BC] Stat Lab 11/04/16 05:15 Received D Dimer [D-DIMER QUANTITATIVE] [COAG] Stat Lab 11/04/16 05:15 Received INR,PT,PROTHROMBIN TIME [COAG] Stat Lab 11/04/16 05:15 Received MANUAL DIFFERENTIAL QA/NC [HEME] Stat Lab 11/04/16 05:15 Results TROPONIN I [CHEM] Stat Lab 11/04/16 05:15 Received Labs: Laboratory Tests 11/04/16 11/04/16 Range/Units 05:15 05:15 WBC 19.4 H (5.0-10.0) 10^3/uL RBC 4.32 L (4.6-6.2) 10^6/uL Hgb 12.5 L (14.0-18.0) g/dL Hct 38.8 L (40.0-54.0) % MCV 89.8 (80-100) fL MCH 28.9 (27.0-34.0) pg MCHC 32.2 L (33.0-35.0) g/dL Plt Count 282 (150-450) 10^3/uL Neut % (Auto) 94.3 H (42.2-75.2) % Lymph % (Auto) 1.6 L (20.5-50.1) % [place] % (Auto) 3.9 (2-8) % Eos % (Auto) 0.1 L (1.0-3.0) % Baso % (Auto) 0.1 (0.0-1.0) % Add Manual Diff Yes Lactic Acid 1.6 (0.5-2.2) mmol/L Meds: Medications Discontinued Medications Generic Name Dose Route Start Last Admin Trade Name Andi PRN Reason Stop Dose Admin Furosemide 20 mg 11/04/16 05:10 11/04/16 05:27 Lasix IVPUSH 11/04/16 05:11 20 mg ONETIME ONE Administration Methylprednisolone Sodium Succinate 125 mg 11/04/16 05:10 11/04/16 05:27 Solu-Medrol IVPUSH 11/04/16 05:11 125 mg ONETIME ONE Administration Naloxone HCl Confirm 11/04/16 05:50 Narcan Administered 11/04/16 05:51 Dose 2 mg .ROUTE .STK-MED ONE - Re-Assessments/Exams Free Text/Narrative Re-Assessment/Exam: 11/04/16 05:55 pt suddenly went into respiratory arrest, ET with 7.5, CPR initated with IV epi x 2 + narcan = no response. CPR continued and d/c on no resumption of spontaneous activity after 25 minutes. Departure - Departure Time of Disposition: 05:57 Disposition: 20 Preliminary Cause of *Q: multi system organ failure Clinical Impression: Cardiopulmonary arrest, End stage renal disease on dialysis - Discharge Information - My Orders Last 24 Hours: My Active Orders 11/04/16 05:01 EKG 12 Lead [EKG Documentation Completion] [RC] STAT 11/04/16 05:04 Chest 1V Frontal [CR] Urgent 11/04/16 05:10 CULTURE BLOOD [BC] Stat 11/04/16 05:15 B-TYPE NATRIURETIC PEPTIDE,BNP [CHEM] Stat CBC WITH AUTO DIFF [HEME] Stat COMPREHENSIVE METABOLIC PN,CMP [CHEM] Stat CULTURE BLOOD [BC] Stat D Dimer [D-DIMER QUANTITATIVE] [COAG] Stat INR,PT,PROTHROMBIN TIME [COAG] Stat MANUAL DIFFERENTIAL QA/NC [HEME] Stat TROPONIN I [CHEM] Stat 11/04/16 05:48 Chest 1V Frontal [CR] Urgent 11/04/16 05:50 ABG [BLOOD GAS ARTERIAL] [BG] Stat - Assessment/Plan Last 24 Hours: My Active Orders 11/04/16 05:01 EKG 12 Lead [EKG Documentation Completion] [RC] STAT 11/04/16 05:04 Chest 1V Frontal [CR] Urgent 11/04/16 05:10 CULTURE BLOOD [BC] Stat 11/04/16 05:15 B-TYPE NATRIURETIC PEPTIDE,BNP [CHEM] Stat CBC WITH AUTO DIFF [HEME] Stat COMPREHENSIVE METABOLIC PN,CMP [CHEM] Stat CULTURE BLOOD [BC] Stat D Dimer [D-DIMER QUANTITATIVE] [COAG] Stat INR,PT,PROTHROMBIN TIME [COAG] Stat MANUAL DIFFERENTIAL QA/NC [HEME] Stat TROPONIN I [CHEM] Stat 11/04/16 05:48 Chest 1V Frontal [CR] Urgent 11/04/16 05:50 ABG [BLOOD GAS ARTERIAL] [BG] Stat
[2016-11-04 05:11] VITALS: BP 143/91
[2016-11-04] MEDS ORDERED: Naloxone 2 MG/2 ML Syringe ONE (05:50)
[2016-11-04 05:54] LABS: BASE EXCESS ARTERIAL -14 mmol/L ((-2)-(+3)); BICARBONATE,ARTERIAL 11.3 mmol/L (22-26); O2 DELIVERY DEVICE NON REBR MASK; O2 SATURATION ARTERIAL 100 % (95-100); PCO2 ARTERIAL 25 mmHg (35-45); PO2 ARTERIAL 187 mmHg (70-100)
[2016-11-04 05:55] LABS: ALLEN TEST POSITIVE
--- NOTE | 2016-11-04 06:04 | PCM.SN ---
- Free Text/Narrative Note: Called to ER at 05:17, arrived at 05:32 - originally called to assist with patient in respiratory distress, on cpap, but on arrival, pt in full code status , already intubated with positive end tidal CO2 and good bilateral equal breath sounds. Pt not responding to code interventions, and after around 30 minutes, code was called by Dr. Jacobo.
[2016-11-04 06:08] LABS: CHLORIDE,CL 94 mmol/L (101-111); SODIUM,NA 126 mmol/L (135-145)
[2016-11-04] MEDS ORDERED: EPINEPHrine 1:10,000 1 MG/10 ML Syringe IV ONE (16:00)
[2016-11-04] MEDS ORDERED: Naloxone 2 MG/2 ML Syringe IV ONE (16:00)
--- NOTE | 2016-11-07 06:58 | EKG ---
11/04/2016- PORFIRIO ACEVEDO - A 12-lead EKG shows left ventricular hypertrophy, multiform ventricular premature complexes, nonspecific ST-T wave changes. Wide complex tachycardia with heart rate of 112, NM interval of 143, QTc of 456. Abnormal EKG. [facility] /[id number]
== END 2016-11-04 09:45 | disposition expired ==
LOC: DL.ED 04:57
DX: I46.9 Cardiac arrest, cause unspecified (principal); N18.6 End stage renal disease; I12.0 Hypertensive chronic kidney disease with stage 5 chronic kidney disease or end stage renal disease; E11.9 Type 2 diabetes mellitus without complications; J44.9 Chronic obstructive pulmonary disease, unspecified; I25.10 Atherosclerotic heart disease of native coronary artery without angina pectoris; F17.210 Nicotine dependence, cigarettes, uncomplicated; Z88.8 Allergy status to other drugs, medicaments and biological substances; Z79.01 Long term (current) use of anticoagulants; Z79.899 Other long term (current) drug therapy; Z99.2 Dependence on renal dialysis; Z95.2 Presence of prosthetic heart valve; Z98.890 Other specified postprocedural states
CPT/HCPCS: 31500; 36415; 36600; 71010; 80053; 82803; 83605; 83880; 84484; 85025; 85379; 85610; 87040; 87077; 87186; 92950; 93005; 93010; 96374; 96375; 99291; J0171; J1940; J2310; J2930; 99284